=== PATIENT | female | born 1980 | race Caucasian/White ===

== ENCOUNTER 2017-10-29 12:25 | Emergency (ER) | payer OTHER ==
[~2017-10-29] VITALS: Ht 154.9 cm; Wt 85.6 kg
[~2017-10-29 12:25] MED LIST: ALBU8.5H5 INH; DIAZ5TAB PO; FLUT16SP2 INH; FLUT1DIS3 INH; IBUP-1223 PO; METO50TA82 PO; MONT10TA6 PO; OXYC5CAP2 PO; PRED10TA14 PO
[2017-10-29 13:38] VITALS: BP 133/96
[2017-10-29] MEDS ORDERED: FLUT1BLS INH (13:38)
[2017-10-29] MEDS ORDERED: OMNIPAQUE 350 MG/ML, 75ML BOTTLE ONE (15:00)
== END 2017-10-29 15:28 | disposition home or self-care (01) ==
LOC: ED 13:37
DX: R04.0 Epistaxis (principal); I10 Essential (primary) hypertension; J45.909 Unspecified asthma, uncomplicated
CPT/HCPCS: 70487; 99284; Q9967